=== PATIENT | female | born 1970 | race Two or more races ===

== ENCOUNTER → 2020-06-04 | Outpatient (CLI) | payer OTHER | END | disposition home or self-care (01) | LOC: OFIC 805 02-19 11:30 | PROVIDERS: ATTEND Otolaryngology | DX: E04.1 Nontoxic single thyroid nodule (principal); G47.33 Obstructive sleep apnea (adult) (pediatric); R22.1 Localized swelling, mass and lump, neck ==

== ENCOUNTER 2020-07-01 11:59 | Outpatient (CLI) | payer OTHER | END 2020-07-01 12:30 | disposition home or self-care (01) | LOC: OFIC 805 11:59 | PROVIDERS: ATTEND Otolaryngology | DX: G47.33 Obstructive sleep apnea (adult) (pediatric) (principal); M54.2 Cervicalgia ==

== ENCOUNTER 2021-04-29 12:01 | Outpatient (CLI) | payer OTHER | END 2021-04-29 12:02 | disposition home or self-care (01) | LOC: SONOGRAMA 12:01 → MAMO-SONO 12:15 | PROVIDERS: ATTEND Internal Medicine Cardiovascular Disease | DX: M75.31 Calcific tendinitis of right shoulder (principal) ==

== ENCOUNTER 2023-02-16 13:04 | Outpatient (CLI) | payer OTHER | END 2023-02-16 13:11 | disposition home or self-care (01) | LOC: RAD 13:04 | DX: G47.33 Obstructive sleep apnea (adult) (pediatric) (principal) ==

== ENCOUNTER 2023-04-14 12:43 | Outpatient (CLI) | payer OTHER | END 2023-04-14 12:52 | disposition home or self-care (01) | LOC: LAB 12:43 | PROVIDERS: ATTEND Internal Medicine Rheumatology | DX: M06.09 Rheumatoid arthritis without rheumatoid factor, multiple sites (principal) ==

== ENCOUNTER 2025-01-15 10:25 | Outpatient (CLI) | payer OTHER | END 2025-01-15 10:29 | disposition home or self-care (01) | LOC: SONOGRAMA 10:25 | PROVIDERS: ATTEND Obstetrics & Gynecology | DX: R31.1 Benign essential microscopic hematuria (principal); Z90.710 Acquired absence of both cervix and uterus; R29.3 Abnormal posture ==